=== PATIENT | female | born 1935 | race Asian ===

== ENCOUNTER 2017-08-28 11:44 | Inpatient (IN) | payer MEDICARE, MEDICAID ==
[~2017-08-28] VITALS: Ht 152.4 cm; Wt 40.8 kg
[~2017-08-28 11:44] MED LIST: ACET-868 PO; ASCO500T8 PO; CARV3.122 PO; CRAN405C PO; DEXT1DRO3 RIGHTEYE; DOCU-25 PO; HYDR-3326 PO; INSU100I5 SQ; LEVE500S PO; LEVO500T15 PO; LISI10TA5 PO; LORA-258 PO; LORA1TAB82 PO; MAGN400O6 PO; MIRT15TA3 PO; MULT1TAB11 PO; ONDA4TAB8 PO; SIMV10TA2 PO; [UNRECOGNIZED DRUG - OTHER] RIGHTEYE
--- NOTE | 2017-08-28 11:50 | NUR ---
HAILEY FROM [facility] DT RIGHT LEG OPEN WOUND POSSIBLE GANGRENE, PATIENT WAS SENT BY MD HOLBROOK. RIGHT LEG WOUND NOTED WITH GREENISH DISCHARGE. SKIN IS WARM TO TOUCH AND NON DIAPHORETIC. AFEBRILE. VSS
--- NOTE | 2017-08-28 12:00 | NUR ---
CALLED [facility], DROP MAN DR MARIJA SANTOS WAS PAGED.
--- NOTE | 2017-08-28 12:02 | NUR ---
DR PERKINS PAGED FOR DR MARTINEZ
--- NOTE | 2017-08-28 12:08 | NUR ---
DR FONTANEZ ON THE PHONE WITH DR MARTINEZ.
--- NOTE | 2017-08-28 12:21 | NUR ---
CALLED PHARMACY FOR IV ATB
[2017-08-28] MEDS ORDERED: VANCOMYCIN 1 GM in IV D5W 250 ML IV ONE (12:30)
[2017-08-28] MEDS ORDERED: GENTAMICIN 80 MG in IV D5W 50 ML IV ONE (12:30)
[2017-08-28 12:36] LABS: BASOPHILS # (AUTO) 0.1 /CMM (0.0-0.2); BASOPHILS % (AUTO) 1.6 % (0.0-2.0); EOSINOPHILS # (AUTO) 0.2 /CMM (0.0-0.7); EOSINOPHILS % (AUTO) 4.1 % (0.0-6.0); HEMATOCRIT 38 % (33-45); HEMOGLOBIN 12.5 g/dL (11.5-14.8); LYMPHOCYTES # (AUTO) 1.4 /CMM (0.8-4.8); MEAN CORPUSCULAR HEMOGLOBIN 30 PG (26.0-33.0); MEAN CORPUSCULAR HGB CONC 33 g/dl (31.0-36.0); MEAN CORPUSCULAR VOLUME 91 fL (82-100); MONOCYTES # (AUTO) 0.2 /CMM (0.1-1.30); MONOCYTES % (AUTO) 4.1 % (2.0-12.0); NEUTROPHILS # (AUTO) 3.9 /CMM (1.8-8.9); NEUTROPHILS % (AUTO) 66.2 % (43.0-81.0); PLATELET COUNT (AUTO) 297 /CMM (150-450); RDW COEFFICIENT OF VARIATION 12.4 (11.5-15.0); RED BLOOD CELL COUNT(AUTO) 4.13 MIL/uL (4.0-5.2); WHITE BLOOD COUNT (AUTO) 5.8 K/uL (4.3-11.0)
--- NOTE | 2017-08-28 12:40 | NUR ---
FOLLOWED UP WITH PHARMACY REGARDING ATB.
[2017-08-28 12:46] LABS: CALCIUM, SERUM 9.8 mg/dL (8.5-10.1); CARBON DIOXIDE 33 mmol/L (21-32); CHLORIDE 101 mmol/L (98-107); CREATININE 0.6 mg/dL (0.6-1.3); GLUCOSE 183 mg/dL (74-106); POTASSIUM 4.2 mmol/L (3.5-5.1); SODIUM SERUM 140 mmol/L (136-145); UREA NITROGEN, BLOOD 16 mg/dL (7-18)
[2017-08-28 12:49] LABS: INR 0.95 (0.87-1.13); PROTHROMBIN TIME 9.9 SECS (9.5-12.7)
[2017-08-28 12:51] LABS: ALANINE AMINOTRANSFERASE 23 U/L (12-78); ALBUMIN 3.3 g/dL (3.4-5.0); ALKALINE PHOSPHATASE 87 U/L (46-116); ASPARTATE AMINOTRANSFERASE 28 U/L (15-37); BILIRUBIN,DIRECT 0.1 mg/dL (0.0-0.2); BILIRUBIN,TOTAL 0.5 mg/dL (0.2-1.0); TOTAL PROTEIN, SERUM 7.6 g/dL (6.4-8.2)
[2017-08-28 12:53] LABS: TROPONIN I < 0.017 ng/mL (0.00-0.056)
[2017-08-28] MEDS ORDERED: INSU100I4 SQ (12:54)
[2017-08-28] MEDS ORDERED: CRAN425C PO (12:54)
--- NOTE | 2017-08-28 13:03 | NUR ---
REPORT GIVEN TO MELIZA CONTRERAS CONTINUITY OF CARE
--- NOTE | 2017-08-28 13:13 | NUR ---
PATIENT TRANSPORTED TO [facility] [place]. S
--- NOTE | 2017-08-28 13:35 | NUR ---
RN NOTE PATIENT ARRIVE TO THE UNIT ON GURNEY A/0X1-2 ITCHING AND SCRATCHING SCREAMING WITH UNIDENTIFIABLE LANGUAGE. PATIENT VITALS ASSESSED AND NO SOB NOTED , PAIN UNABLE TO BE SCALED HOWEVER THE PATIENT IS GRIMACING REAPEDALY AND YELLS WHEN LOWER LEFT EXTREMITY IS SLIGHTLY MOVED OR REPOSITIONED PATIENT IS ABLE TO MOVE HER SELF HOWEVER UNABLE TO FOLLOW COMMANDS PANT APPEAR ANIOUS AND THRUSH / WHITE COATING NOTED ON PATIENTS TONGUE PATIENT HAS MULTIPLE SKIN ISSUE : LEFT LOWER LEG WET GANGRENE [id number] TO DETERMINE DEPTH. PATIENT SCRACTHING SKIN ALL OVER AND BODY CAUSING FURTHER SKIN IRRITATION. PICTURES TAKEN AND PLACE IN THE CHART , WOUND CARE NURSE LAYA AND MICHELLE PAIGE HELPED ASSIST WITH INITIAL INTAKE. PATIENT SAFTEY MEASURES IN PLACE RN SITTING AT BEDSIDE
[2017-08-28 14:00] VITALS: BP 158/92
[2017-08-28] MEDS: LIDOCAINE 1% INJ 50 ML MDV IJ ONE (15:30)
[2017-08-28 16:00] VITALS: BP 145/84
[2017-08-28] MEDS: LORAZEPAM INJ 2 MG/ML VIAL IV PRN (16:55)
[2017-08-28] MEDS ORDERED: CEFTRIAXONE 1 G in IV D5W 50 ML IV SCH (17:00)
[2017-08-28] MEDS ORDERED: Medication Not On Formulary EA (Cranberry Extract (Cranberry) 425 MG) PO SCH (17:00)
[2017-08-28] MEDS ORDERED: ACETAMINOPHEN 325 MG TABLET PO PRN (17:00)
[2017-08-28] MEDS ORDERED: IV D5/ 0.9% NACL 1,000 ML IV ONE (17:00)
[2017-08-28] MEDS ORDERED: FEE PK DOSING 1 MIN EA MC ONE (17:19)
[2017-08-28] MEDS: POLYVINYL ALCOHOL 15 ML BOTTLE RIGHTEYE SCH (19:10)
[2017-08-28] MEDS: CARVEDILOL 3.125 MG TABLET PO SCH (19:10)
--- NOTE | 2017-08-28 19:11 | NUR ---
RN CLOSING NOTE PATIENT IN BED RA NO SOB NOTED PATIENT GIVEN PM B/P MEDICATION DAYSHIFT STILL AWAITING FURTHER MEDICATION VIA PHARMACY RN WILL ENDORSE FURTHER CARE TO PM RN , PATIENT IS RESTING AFTER DEBRIBMENT MEAL TRAY ON BEDSIDE TABLE TO GIVE TO PATIENT AFTER SHE AWAKENS
--- NOTE | 2017-08-28 19:30 | NUR ---
MS RN NOTE RECEIVED PATIENT AWAKE IN BED. VERY CONFUSED LAO SPEAKING. NO DISTRESS NOTED. IV SITE TO RIGHT HAND INTACT, WITH FLUIDS RUNNING ORDERED.DRESSING TO LEFT LEG C/D/I. BED LOCKED AND IN LOWEST POSITION. SIDE RAILS UP, CALL LIGHT WITHIN REACH. WILL CONTINUE TO MONITOR.
[2017-08-28 20:00] VITALS: BP 142/78
[2017-08-28] MEDS: LEVETIRACETAM (250 MG) 250 MG TABLET PO SCH (20:11)
[2017-08-28] MEDS: CEFTRIAXONE 1 G in IV D5W 50 ML IV SCH (20:18)
--- NOTE | 2017-08-28 20:45 | NUR ---
MS RN NOTE IV TO RHAND LEAKING. NEW IV STARTED #22 MER. PATIENT TOLERATED WELL. WILL CONTINUE TO MONITOR.
--- NOTE | 2017-08-28 21:00 | NUR ---
MS RN NOTE PATIENT HAS FACIAL GRIMACING. SON AT BEDSIDE. STATES THAT PATIENT IS HAVING 8/10 PAIN TO LEFT LEG DEBRIDEMENT SITE. NEW ORDER RECEIVED FOR DILAUDID 0.5MG Q8H FOR SEVERE PAIN RECEIVED AND CARRIED OUT. ADMINISTERED DILAUDID TO PATIENT SAFELY ORDERED. WILL CONTINUE TO MONITOR.
[2017-08-28] MEDS: HYDROMORPHONE 1 MG/1 ML DISP.SYRIN IV PRN (21:07)
[2017-08-28] MEDS: SIMVASTATIN 10 MG TABLET PO SCH (21:07)
[2017-08-28] MEDS: DOCUSATE SODIUM 100 MG CAPSULE PO SCH (21:07)
[2017-08-28] MEDS: METRONIDAZOLE 500MG/ NS 100ML 500 MG in PREMIX 1 EA IV SCH (21:07)
[2017-08-28] MEDS: INSULIN DETEMIR 100 UNIT/ML CARTRIDGE SQ SCH (21:11)
[2017-08-28 22:00] VITALS: BP 142/78
[2017-08-29 04:00] VITALS: BP 153/62
[2017-08-29] MEDS: METRONIDAZOLE 500MG/ NS 100ML 500 MG in PREMIX 1 EA IV SCH ×3 (04:08→23:03)
[2017-08-29 05:44] LABS: CALCIUM, SERUM 8.7 mg/dL (8.5-10.1); CARBON DIOXIDE 31 mmol/L (21-32); CHLORIDE 102 mmol/L (98-107); CREATININE 0.9 mg/dL (0.6-1.3); GLUCOSE 144 mg/dL (74-106); POTASSIUM 4.4 mmol/L (3.5-5.1); SODIUM SERUM 141 mmol/L (136-145); UREA NITROGEN, BLOOD 16 mg/dL (7-18)
[2017-08-29] MEDS: VANCOMYCIN 500 MG in IV D5W 100 ML IV SCH (06:30)
[2017-08-29] MEDS: INSULIN DETEMIR 100 UNIT/ML CARTRIDGE SQ SCH ×2 (06:31→18:33)
[2017-08-29 08:00] VITALS: BP 134/73
--- NOTE | 2017-08-29 08:18 | NUR ---
WOUND CARE CONSULT: PT PRESENTS WITH LEFT LOWER LEG NECROTIC WOUND WITH ODOR AND PURULENT DRAINAGE. PT FOLLOWED BY DR ZAMORA. DEFER TO DPM FOR TREATMENT PLAN OF LOWER EXTREMITIES. PT IS VERY THIN AND BONY WITH MULTIPLE AREAS OF SCARRING AND SCRATCH LEE. PT NOTED TO SCRATCH HER SKIN AT TIMES. PT ON ANNETTE ISOFLEX LOW AIRLOSS BED. ALL SKIN PROTECTION MEASURES IN PLACE AND DISCUSSED WITH NURSING STAFF. WILL SEE PRN. ARRIOLA IN AGREEMENT WITH PLAN OF CARE.
[2017-08-29] MEDS ORDERED: Z GUARD REMEDY 2 OZ OINT TP PRN (08:30)
[2017-08-29] MEDS: LEVETIRACETAM (250 MG) 250 MG TABLET PO SCH ×2 (09:15→21:20)
[2017-08-29] MEDS: MULTIVIT, IRON, MIN NO. 8, FA 1 TAB PO SCH (09:15)
[2017-08-29] MEDS: CARVEDILOL 3.125 MG TABLET PO SCH ×2 (09:16→17:04)
[2017-08-29] MEDS: LISINOPRIL (10MG) 10 MG TABLET PO SCH (09:16)
[2017-08-29] MEDS: Z GUARD REMEDY 2 OZ OINT TP SCH (09:19)
[2017-08-29] MEDS: POLYVINYL ALCOHOL 15 ML BOTTLE RIGHTEYE SCH ×3 (11:04→17:02)
[2017-08-29] MEDS: POVIDONE-IODINE OINT 28.4 GM TUBE TP SCH ×2 (11:07→17:01)
--- NOTE | 2017-08-29 12:00 | NUR ---
PT. PULLED OUT IV,LOW ALTITUDE AIR DEFENSE OFFICER NOTIFIED,YARN PACKER CALLED FOR MIDLINE INSERTION-MEANWHILE PT. NEEDS ANTIBIOTICS-SO FLOOR RN ATTEMPTED PERIPHERAL INSERTION-TO NO AVAIL.
--- NOTE | 2017-08-29 13:30 | NUR ---
FLAGYL DUE AT 1300 UNABLE TO BE GIVEN.IV OUT.
--- NOTE | 2017-08-29 13:46 | NUR ---
Patient resides at [facility] [phone], he is totally dependent with adl's and bedfast most of the time. Current plan is to dc back to SNF once discharge. Addendum: 08/29/17 at 1347 by ANDREZ HOLBROOK RN Amended: Links added.
[2017-08-29 16:00] VITALS: BP 178/70
--- NOTE | 2017-08-29 17:30 | NUR ---
ARTERIAL DOPPLER UNABLE TO BE DONE DUE TO PT,S CONTRACTED LIMBS AND BEING UNCOOPERATIVE.
--- NOTE | 2017-08-29 19:30 | NUR ---
RN NOTES, PATIENT RECEIVED IN BED SLEEPING AT THIS TIME, RA BREATHING EVEN AND UNLABORED NO S/S OF PAIN OR DISCOMFORT AT THIS TIME. AFEBRILE, AT THIS TIME, NO PIV LINE IN PLACE PER RN DAY SHIFT A NURSE IS COMING TO INSERT A MIDLINE. NOTED WITH MULTIPLE CONTRACTURES. BED LOCKED IN LOWEST POSITION, NOTED CLEAN AND DRY AT THIS TIME. DRESSING IN LEFT FOOT DRY AND CLEAN, NO BLEEDING NOTED. CALL LIGHT W/I REACH, WILL CONTINUE TO MONITOR CLOSELY.
[2017-08-29 20:00] VITALS: BP 173/58
[2017-08-29] MEDS: DOCUSATE SODIUM 100 MG CAPSULE PO SCH (21:16)
[2017-08-29] MEDS: SIMVASTATIN 10 MG TABLET PO SCH (21:16)
[2017-08-29] MEDS: HYDROMORPHONE 1 MG/1 ML DISP.SYRIN IV PRN (22:22)
[2017-08-29] MEDS: LORAZEPAM INJ 2 MG/ML VIAL IV PRN (22:24)
[2017-08-29] MEDS: CEFTRIAXONE 1 G in IV D5W 50 ML IV SCH (22:28)
[2017-08-30] MEDS: VANCOMYCIN 500 MG in IV D5W 100 ML IV SCH (01:20)
[2017-08-30 04:00] VITALS: BP 149/62
[2017-08-30] MEDS: METRONIDAZOLE 500MG/ NS 100ML 500 MG in PREMIX 1 EA IV SCH ×2 (06:17→13:06)
[2017-08-30 06:38] VITALS: BP 149/62
[2017-08-30 06:48] LABS: CALCIUM, SERUM 8.8 mg/dL (8.5-10.1); CARBON DIOXIDE 33 mmol/L (21-32); CHLORIDE 104 mmol/L (98-107); CREATININE 0.7 mg/dL (0.6-1.3); POTASSIUM 3.4 mmol/L (3.5-5.1); SODIUM SERUM 144 mmol/L (136-145); UREA NITROGEN, BLOOD 15 mg/dL (7-18)
[2017-08-30 06:53] LABS: GLUCOSE 47 mg/dL (74-106)
[2017-08-30] MEDS ORDERED: DEXTROSE 50%-WATER 50 ML DISP.SYRIN ONE (07:22)
[2017-08-30] MEDS: INSULIN DETEMIR 100 UNIT/ML CARTRIDGE SQ SCH ×2 (07:30→18:00)
--- NOTE | 2017-08-30 07:36 | NUR ---
RN NOTES PT REMAINED IN STABLE CONDITION THROUGHOUT THE SHIFT AFTER PRN MEDICINE GIVEN ORDERED. PT ASLEEP WELL BREATHING EVEN AND UNLABORED. NO FACIAL COMPLAIN OF PAIN AT 0655 KRISTINE FROM LAB CALLED AND REPORT REGARDING THE CRITICAL VALUE OF GLUCOSE 47 MG/DL. MANUAL ACCUCHECK DONE BS 52 MG/DL. OFFERED JUICE AND SNACK BU PT REFUSED TO EAT. RESPONSIVE SCREAMING, AND YELLING WHEN TRYING TO GIVE FOOD OR JUICE. PAGED MD AND WAITED TO CALL BACK. REPORT TO CHARGE NURSE AND D50 GIVEN PROTOCOL. ENDORSED TO AM NURSE TO FOLLOW UP MD AND TO RECHECK BS.
[2017-08-30 08:00] VITALS: BP 163/71
--- NOTE | 2017-08-30 08:13 | NUR ---
RN NOTE; HELD LEVEMIR INSULIN LEVEMIR 12 UNIT HELD DUE TO EPISODE OF HYPOGLYCEMIA BS- 52 MG/DL IN AM , DEXTROSE 50% IV GIVEN BY PREVIOUS SHIFT RN , RECHECKED BS - 261 MG/DL . WILL CONTINUE TO MONITOR .
[2017-08-30] MEDS: MULTIVIT, IRON, MIN NO. 8, FA 1 TAB PO SCH (09:55)
[2017-08-30] MEDS: LISINOPRIL (10MG) 10 MG TABLET PO SCH (09:55)
[2017-08-30] MEDS: LEVETIRACETAM (250 MG) 250 MG TABLET PO SCH ×2 (09:55→20:12)
[2017-08-30] MEDS: CARVEDILOL 3.125 MG TABLET PO SCH ×2 (09:56→16:20)
[2017-08-30] MEDS: Z GUARD REMEDY 2 OZ OINT TP SCH (09:57)
[2017-08-30] MEDS: POLYVINYL ALCOHOL 15 ML BOTTLE RIGHTEYE SCH ×3 (09:57→16:21)
[2017-08-30] MEDS: POVIDONE-IODINE OINT 28.4 GM TUBE TP SCH ×2 (10:00→16:28)
[2017-08-30 12:00] VITALS: BP 156/52
[2017-08-30] MEDS: POTASSIUM CL. PREMIX PERIPHER. 50 ML IV SCH ×2 (13:46→15:10)
--- NOTE | 2017-08-30 15:12 | NUR ---
RN NOTE; RECEIVED RESTRAINTS ORDER FROM DR FONTANEZ FOR B/L MITTENS DUE TO PATIENT SCRATCHING AND PULLING OUT LINES NECESSARY FOR TREATMENT , WILL CHECK FOR CIRCULATION .
[2017-08-30 16:00] VITALS: BP 164/80
[2017-08-30] MEDS: LORAZEPAM INJ 2 MG/ML VIAL IV PRN (16:20)
[2017-08-30] MEDS ORDERED: LEVOFLOXACIN (500MG) 500 MG TABLET PO ONE (17:00)
[2017-08-30] MEDS: ACIDOPHILUS/BULGARICUS 1 EACH TAB.CHEW PO SCH (18:21)
[2017-08-30] MEDS: AMPICILLIN SODIUM 1 GM in IV NS 0.9% 100 ML IV SCH (18:22)
--- NOTE | 2017-08-30 19:55 | NUR ---
RN EOS NOTE; PT REMAINED STABLE DURING THE SHIFT. NO ANY DISTRESS NOTED, ALL DUE MEDS TOLERATED WELL. ENDORSE TO NEXT SHIFT RN FOR CONTINUITY OF CARE.
[2017-08-30] MEDS: HYDROMORPHONE 1 MG/1 ML DISP.SYRIN IV PRN (20:12)
--- NOTE | 2017-08-30 20:20 | NUR ---
RN NOTES PATIENT ON BED. BREATHING EVEN AND UNLABORED. AOX1 TO NAME, CONFUSED MOST OF THE TIME. WITH IV SITE ON RFA G22 AND MER MIDLINE INTACT AND PATENT AND FLUSHED WELL.LEFT LEG ULCER SOAKED WITH WOUND DRAINAGE AND SUNK FROM THE WOUND CHANGED ORDERED TX. PT IS RESTLESS ON BED, SCREAMED AND YELLED WHILE TAKING VS. SBP SHOWS 180'S AT 1940 PM. AND TEM 99.3 DEG [facility] PAIN MEDICINE GIVEN ORDERED DUE TO LEFT LOWER LEG GANGRENE. AND PT STARTED TO CALM DOWN. BP RECHECK AFTER 15 MINUTES EFFECTIVE SBP NOW IS 107. PT ASLEEP AT THIS TIME WITH ADEQ. OXYGENATION. OFFLOADED EXT WITH PILLOWS. BILATERAL MITTENS CONTINUE TO RENDERED DUE TO EPISODE OF PULLING OUT WHEN AWAKE. KEP CLEAN AND DRY WILL CONTINUE TO MONITOR.
[2017-08-30] MEDS: DOCUSATE SODIUM 100 MG CAPSULE PO SCH (21:32)
[2017-08-30] MEDS: SIMVASTATIN 10 MG TABLET PO SCH (21:32)
[2017-08-31] MEDS: AMPICILLIN SODIUM 1 GM in IV NS 0.9% 100 ML IV SCH ×3 (03:53→18:44)
[2017-08-31 04:00] VITALS: BP 159/64
--- NOTE | 2017-08-31 06:52 | NUR ---
RN NOTES PATIENT ASLEEP WELL ON BED. BREATHING EVEN AND UNLABORED. NO SIGNIFICANT CHANGES SHOWS. WOUND DRESSING CHANGE ORDERED TX. AFEBRILE. VS CONTROLLED WITH MEDS. STILL WITH POOR APPETITE OFFERED FOOD INEFFECTIVE. TURNED AND REPOSITIONED Q2H AND PRN PT COMFORTABLE. BILATERAL MITTENS IN PLACED. BED LOCKED AND PLACED IN LOWEST POSSIBLE POSITION. KEPT CLEAN AND DRY. WILL ENDORSED CONTINUITY OF CARE TO AM NURSE. AND TO FOLLOW UP MD REGARDING THE DISCHARGE OF PATIENT PER SON
[2017-08-31] MEDS: INSULIN DETEMIR 100 UNIT/ML CARTRIDGE SQ SCH ×2 (07:30→18:47)
[2017-08-31 07:53] LABS: CALCIUM, SERUM 8.9 mg/dL (8.5-10.1); CARBON DIOXIDE 29 mmol/L (21-32); CHLORIDE 103 mmol/L (98-107); CREATININE 0.8 mg/dL (0.6-1.3); GLUCOSE 137 mg/dL (74-106); POTASSIUM 3.9 mmol/L (3.5-5.1); SODIUM SERUM 143 mmol/L (136-145); UREA NITROGEN, BLOOD 14 mg/dL (7-18)
[2017-08-31 08:00] VITALS: BP 131/61
--- NOTE | 2017-08-31 08:00 | NUR ---
NURY MS RN AM NOTES, PATIENT RECEIVED IN BED AWAKE AND RESTLESS IN BED.RA BREATHING EVEN AND UNLABORED NO S/S OF PAIN OR DISCOMFORT AT THIS TIME. AFEBRILE, AT THIS TIME, NOTED WITH MULTIPLE CONTRACTURES. BED LOCKED IN LOWEST POSITION, NOTED CLEAN AND DRY AT THIS TIME. DRESSING IN LEFT FOOT DRY AND CLEAN, NO BLEEDING NOTED. CALL LIGHT W/IN REACH, WILL CONTINUE TO MONITOR CLOSELY.
[2017-08-31] MEDS ORDERED: LEVO250T2 PO (08:29)
[2017-08-31] MEDS ORDERED: POVI28.4 TP (08:29)
[2017-08-31] MEDS ORDERED: ALLA266C2 TP ×2 (08:29)
[2017-08-31] MEDS ORDERED: ACID1TAB12 PO (08:29)
[2017-08-31] MEDS ORDERED: AMPI500C11 PO (08:32)
--- NOTE | 2017-08-31 10:18 | NUR ---
MIRANDA HELD-PT REFUSED BREAKFAST
[2017-08-31] MEDS: MULTIVIT, IRON, MIN NO. 8, FA 1 TAB PO SCH (10:30)
[2017-08-31] MEDS: LEVETIRACETAM (250 MG) 250 MG TABLET PO SCH ×2 (10:30→21:32)
[2017-08-31] MEDS: LISINOPRIL (10MG) 10 MG TABLET PO SCH (10:31)
[2017-08-31] MEDS: CARVEDILOL 3.125 MG TABLET PO SCH ×2 (10:31→18:45)
[2017-08-31] MEDS: ACIDOPHILUS/BULGARICUS 1 EACH TAB.CHEW PO SCH ×3 (10:31→18:45)
[2017-08-31] MEDS: POVIDONE-IODINE OINT 28.4 GM TUBE TP SCH ×2 (10:32→18:46)
[2017-08-31] MEDS: Z GUARD REMEDY 2 OZ OINT TP SCH (10:33)
[2017-08-31] MEDS: POLYVINYL ALCOHOL 15 ML BOTTLE RIGHTEYE SCH ×3 (10:33→18:46)
--- NOTE | 2017-08-31 18:00 | NUR ---
PT RESTING IN BED WITH NO S/S OF PAIN OR DISTRESS.RESTLESS EPISODE OCCASIONALLY.WITH BILATERAL MITTENS ON AND CHECKED FOR CIRCULATION EVERY TWO HRS.
[2017-08-31] MEDS: LEVOFLOXACIN (250MG) 250 MG TABLET PO SCH (18:45)
--- NOTE | 2017-08-31 19:30 | NUR ---
RN/MS NOTES: RECEIVED PATIENT AWAKE IN BED. VERY CONFUSED WOLOF SPEAKING JUST MUMBLES. NO FACIAL MACK OR MOANING NOTED. NOT IN ANY RESPIRATORY DISTRESS NOTED. IV SITE TO RIGHT FA INTACT AND PATENT W/ NO S/S OF INFECTION/INFILTRATION NOTED. HAS MER MID LINE INTACT. DRESSING TO LEFT LEG C/D/I. BED LOCKED AND IN LOWEST POSITION. SIDE RAILS UP, CALL LIGHT WITHIN REACH. HAS BILATERAL MITTENS INPLACE. WILL CONTINUE TO MONITOR.
[2017-08-31] MEDS: HYDROMORPHONE 1 MG/1 ML DISP.SYRIN IV PRN (19:50)
[2017-08-31 20:00] VITALS: BP 147/76
[2017-08-31] MEDS: SIMVASTATIN 10 MG TABLET PO SCH (21:32)
[2017-08-31] MEDS: DOCUSATE SODIUM 100 MG CAPSULE PO SCH (21:32)
[2017-09-01] MEDS: AMPICILLIN SODIUM 1 GM in IV NS 0.9% 100 ML IV SCH ×3 (01:10→17:23)
[2017-09-01 04:00] VITALS: BP 125/53
[2017-09-01 06:58] LABS: CARBON DIOXIDE 32 mmol/L (21-32); CHLORIDE 103 mmol/L (98-107); CREATININE 0.8 mg/dL (0.6-1.3); GLUCOSE 162 mg/dL (74-106); POTASSIUM 3.7 mmol/L (3.5-5.1); SODIUM SERUM 142 mmol/L (136-145); UREA NITROGEN, BLOOD 20 mg/dL (7-18)
--- NOTE | 2017-09-01 07:10 | NUR ---
RN OPEN NOTES RECEIVED REPORT FROM FOOD SERVICE DIRECTOR NURSE. WILL CONTINUE TO MONITOR AND ASSESS PATIEN THROUGH OUT MY SHIFT
--- NOTE | 2017-09-01 07:15 | NUR ---
RN/MS NOTES: PT. IN BED SLEEPING W/ RESPIRATIONS EVEN AND UNLABORED. NO FACIAL GRIMACES OR MOANING NOTED. REPORT GIVEN TO NEXT SHIFT NURSE FOR CONTINUE OF CARE.
[2017-09-01] MEDS: INSULIN DETEMIR 100 UNIT/ML CARTRIDGE SQ SCH ×2 (07:30→17:43)
[2017-09-01 08:00] VITALS: BP 127/56
[2017-09-01] MEDS: Z GUARD REMEDY 2 OZ OINT TP SCH (09:51)
[2017-09-01] MEDS: POVIDONE-IODINE OINT 28.4 GM TUBE TP SCH ×2 (09:51→17:25)
[2017-09-01] MEDS: POLYVINYL ALCOHOL 15 ML BOTTLE RIGHTEYE SCH ×3 (09:52→17:25)
[2017-09-01] MEDS: ACIDOPHILUS/BULGARICUS 1 EACH TAB.CHEW PO SCH ×3 (09:58→17:25)
[2017-09-01] MEDS: LEVETIRACETAM (250 MG) 250 MG TABLET PO SCH ×2 (09:58→21:09)
[2017-09-01] MEDS: MULTIVIT, IRON, MIN NO. 8, FA 1 TAB PO SCH (09:58)
[2017-09-01] MEDS: LISINOPRIL (10MG) 10 MG TABLET PO SCH (09:59)
[2017-09-01] MEDS: CARVEDILOL 3.125 MG TABLET PO SCH ×2 (09:59→17:26)
[2017-09-01 16:00] VITALS: BP 148/80
[2017-09-01] MEDS: LEVOFLOXACIN (250MG) 250 MG TABLET PO SCH (17:25)
--- NOTE | 2017-09-01 19:30 | NUR ---
RN/MS NOTES: RECEIVED PATIENT AWAKE IN BED. VERY CONFUSED TAMAZIGHT SPEAKING JUST MUMBLES. NO FACIAL MACK OR MOANING NOTED. NOT IN ANY RESPIRATORY DISTRESS NOTED. IV SITE TO RIGHT FA INTACT AND PATENT W/ NO S/S OF INFECTION/INFILTRATION NOTED. HAS MER MID LINE INTACT. DRESSING TO LEFT LEG C/D/I. BED LOCKED AND IN LOWEST POSITION. SIDE RAILS UP, CALL LIGHT WITHIN REACH. HAS BILATERAL MITTENS INPLACE. WILL CONTINUE TO MONITOR.
--- NOTE | 2017-09-01 19:33 | NUR ---
RN CLOSING NOTES PATIENT IS IN BED. ALERT AND ORIENTED TO SELF ONLY. NO SIGNS AND SYMPTOMS OF DISTRESS OR PAIN. IV SITE IS INTACT AND PATENT. AL NURSING CARE ATTENDED. PATIENT KEPT CLEAN AND DRY. ENDORSED TO SOUBRETTE NURSE.
[2017-09-01 20:00] VITALS: BP 163/41
[2017-09-01] MEDS: DOCUSATE SODIUM 100 MG CAPSULE PO SCH (21:09)
[2017-09-01] MEDS: SIMVASTATIN 10 MG TABLET PO SCH (21:09)
[2017-09-02] MEDS: AMPICILLIN SODIUM 1 GM in IV NS 0.9% 100 ML IV SCH ×2 (01:00→08:40)
[2017-09-02 04:00] VITALS: BP 141/52
[2017-09-02 06:33] LABS: CALCIUM, SERUM 8.6 mg/dL (8.5-10.1); CARBON DIOXIDE 34 mmol/L (21-32); CHLORIDE 103 mmol/L (98-107); CREATININE 0.6 mg/dL (0.6-1.3); GLUCOSE 62 mg/dL (74-106); POTASSIUM 3.3 mmol/L (3.5-5.1); SODIUM SERUM 145 mmol/L (136-145); UREA NITROGEN, BLOOD 13 mg/dL (7-18)
--- NOTE | 2017-09-02 06:54 | NUR ---
RN/MS NOTES: PT. IN BED RESTING. ALERT TO SELF. NO S/S OF FACIAL GRIMACE OR MOANING NOTED. CALL LIGHT W/ REACH. REPOSITIONED PER PROTOCOL. REPORT GIVEN TO NEXT SHIFT NURSE FOR VAMSHI.
--- NOTE | 2017-09-02 07:10 | NUR ---
RN INITIAL NOTE PATIENT RECEIVED IN BED, RESTING. AWAKE, ALERT, DISORIENTED. PRIMARILY GEORGIAN SPEAKING. NO S/S OF PAIN OR DISCOMFORT. RESPIRATIONS ARE EVEN AND UNLABORED. SATING WELL ON ROOM AIR. NO S/S OF RESPIRATORY DISTRESS OR SOB. IV SITE FLUSHED, PATENT. SKIN IS WARM AND DRY TO TOUCH. SAFETY PRECAUTIONS IMPLEMENTED. BED IN LOCKED, LOW POSITION WITH TWO SIDE RAILS UP. CALL LIGHT AND BELONGINGS WITHIN EASY REACH. WILL CONTINUE TO MONITOR.
[2017-09-02] MEDS: INSULIN DETEMIR 100 UNIT/ML CARTRIDGE SQ SCH (07:30)
[2017-09-02 08:00] VITALS: BP 162/57
[2017-09-02] MEDS ORDERED: BOOST PLUS FOOD-VANILLA 237 ML BOX PO SCH (08:00)
[2017-09-02] MEDS: LEVETIRACETAM (250 MG) 250 MG TABLET PO SCH (08:39)
[2017-09-02] MEDS: ACIDOPHILUS/BULGARICUS 1 EACH TAB.CHEW PO SCH ×2 (08:39→12:20)
[2017-09-02] MEDS: LISINOPRIL (10MG) 10 MG TABLET PO SCH (08:39)
[2017-09-02] MEDS: MULTIVIT, IRON, MIN NO. 8, FA 1 TAB PO SCH (08:39)
[2017-09-02] MEDS: POVIDONE-IODINE OINT 28.4 GM TUBE TP SCH (08:40)
[2017-09-02] MEDS: POLYVINYL ALCOHOL 15 ML BOTTLE RIGHTEYE SCH ×2 (08:40→12:20)
[2017-09-02] MEDS: Z GUARD REMEDY 2 OZ OINT TP SCH (08:40)
[2017-09-02] MEDS: CARVEDILOL 3.125 MG TABLET PO SCH (08:40)
[2017-09-02] MEDS: Potassium Chloride 10 MEQ in IV D5W 50 ML IV SCH ×2 (14:10→15:35)
--- NOTE | 2017-09-02 15:30 | NUR ---
RN CLOSING NOTE PATIENT DISCHARGED. LEFT VIA AMBULANCE. REPORT CALLED TO POWER AT [facility].
[2017-09-02 16:00] VITALS: BP 162/57
[2017-09-02] MEDS: LORAZEPAM INJ 2 MG/ML VIAL IV PRN (16:15)
== END 2017-09-02 17:30 | DRG 264 ==
LOC: ER 11:46 → MEDSG1 12:37
PROVIDERS: ADMIT Internal Medicine Nephrology; ATTEND Internal Medicine Nephrology
PROC: 0JBP0ZZ Excision of Left Lower Leg Subcutaneous Tissue and Fascia, Open Approach (ICD-10-PCS; principal; 2017-08-28)
PROC: 05H633Z Insertion of Infusion Device into Left Subclavian Vein, Percutaneous Approach (ICD-10-PCS; 2017-08-28)
DX: E11.52 Type 2 diabetes mellitus with diabetic peripheral angiopathy with gangrene (principal); E43 Unspecified severe protein-calorie malnutrition; G92 Toxic encephalopathy; R53.2 Functional quadriplegia; F03.90 Unspecified dementia, unspecified severity, without behavioral disturbance, psychotic disturbance, mood disturbance, and anxiety; D64.9 Anemia, unspecified; G40.909 Epilepsy, unspecified, not intractable, without status epilepticus; F39 Unspecified mood [affective] disorder; Z86.73 Personal history of transient ischemic attack (TIA), and cerebral infarction without residual deficits; H26.9 Unspecified cataract; M81.0 Age-related osteoporosis without current pathological fracture; Z79.4 Long term (current) use of insulin; I10 Essential (primary) hypertension; Z88.8 Allergy status to other drugs, medicaments and biological substances; Z51.5 Encounter for palliative care; F29 Unspecified psychosis not due to a substance or known physiological condition; M24.569 Contracture, unspecified knee; I25.10 Atherosclerotic heart disease of native coronary artery without angina pectoris; Z79.899 Other long term (current) drug therapy
CPT/HCPCS: 36415; 71010-TC; 80048-TC; 80076-TC; 82962-TC; 83605-TC; 84484-TC; 85025-TC; 85730-TC; 87040-TC; 87070-TC; 87081-TC; 87186-TC; A4216; A4606; A6253; A6402; A6403; J0290; J0696; J1170; J1580; J1815; J2060; J3370; J3480; J3490; J7030; J7042; J7050; J7060; Z7610

== ENCOUNTER 2017-11-23 13:03 | Outpatient (CLI) | payer MEDICARE, MEDICAID ==
[~2017-11-23 13:03] MED LIST changes: +ACID1TAB12 PO; +ALLA266C2 TP; +AMPI500C11 PO; -ASCO500T8 PO; -CRAN405C PO; +CRAN425C6 PO; +DOCU-141 PO; -DOCU-25 PO; -HYDR-3326 PO; +INSU100I4 SQ; -LEVE500S PO; +LEVE500S9 PO; +LEVO250T2 PO; -LEVO500T15 PO; -LORA-258 PO; -LORA1TAB82 PO; -MAGN400O6 PO; -MIRT15TA3 PO; -ONDA4TAB8 PO; +POVI28.4 TP; -[UNRECOGNIZED DRUG - OTHER] RIGHTEYE
[2017-11-23] MEDS ORDERED: NUTR1PAC14 PO (16:20)
[2017-11-23] MEDS ORDERED: AMIN30LI4 PO (16:20)
[2017-11-23] MEDS ORDERED: POLY15DR40 EACHEYE (16:38)
[2017-11-23] MEDS ORDERED: BLOO-668 IN (16:38)
[2017-11-23] MEDS ORDERED: LEVE250T2 PO (16:38)
[2017-11-23] MEDS ORDERED: ASCO500T9 PO (16:38)
[2017-11-23] MEDS ORDERED: ACET-868 PO (16:38)
[2017-11-23] MEDS ORDERED: ACID1TAB12 PO (16:38)
== END 2017-11-23 23:59 | disposition other institution (70) ==
LOC: WOU 13:03
PROVIDERS: ATTEND Podiatrist Foot & Ankle Surgery
DX: E11.52 Type 2 diabetes mellitus with diabetic peripheral angiopathy with gangrene (principal); E11.622 Type 2 diabetes mellitus with other skin ulcer; I96 Gangrene, not elsewhere classified; L97.225 Non-pressure chronic ulcer of left calf with muscle involvement without evidence of necrosis; M24.562 Contracture, left knee; Z79.4 Long term (current) use of insulin; G40.909 Epilepsy, unspecified, not intractable, without status epilepticus; F03.90 Unspecified dementia, unspecified severity, without behavioral disturbance, psychotic disturbance, mood disturbance, and anxiety; Z79.899 Other long term (current) drug therapy
CPT/HCPCS: 11043; A6402

== ENCOUNTER 2017-11-23 14:01 | Inpatient (IN) | payer MEDICARE, MEDICAID ==
[~2017-11-23] VITALS: Ht 149.9 cm; Wt 38.1 kg
[2017-11-23] MEDS ORDERED: AMIN30LI4 PO (16:20)
[2017-11-23] MEDS ORDERED: NUTR1PAC14 PO (16:20)
[2017-11-23] MEDS ORDERED: BLOO-668 IN (16:38)
[2017-11-23] MEDS ORDERED: ACID1TAB12 PO (16:38)
[2017-11-23] MEDS ORDERED: LEVE250T2 PO (16:38)
[2017-11-23] MEDS ORDERED: ASCO500T9 PO (16:38)
[2017-11-23] MEDS ORDERED: POLY15DR40 EACHEYE (16:38)
[2017-11-23] MEDS ORDERED: ACET-868 PO (16:38)
--- NOTE | 2017-11-23 19:23 | NUR ---
M/S RN - Notes Received from APC awake, alert to self, Persian speaking, not in any form of distress, no s/s of pain, admitted for LLE ulcer/gangrene under the care of Dr. Ken Mireles. Skin assessment done and documented. Wound and dietary triggered for consult. Patient came in with no belongings. All admission orders noted and carried out. Patient endorsed to night RN for continuity of care.
--- NOTE | 2017-11-23 19:30 | NUR ---
MS RN NOTES RECEIVED ON BED,A/O X1,CONFUSED,CONTRACTED FROM [facility],LLE GANGRENE WITH DRESSING INTACT AND OLD DISCHARGES NOTED.SALINE LOCK PLACE ON RIGHT HAND #22.REPOSITION PER PROTOCOL.WILL CONTINUE TO MONITOR STATUS.
[2017-11-23 20:00] VITALS: BP 143/86
[2017-11-23] MEDS ORDERED: FEE PK DOSING 1 MIN EA MC ONE (20:20)
[2017-11-23] MEDS ORDERED: VANCOMYCIN 1 GM in IV D5W 250ml IV ONE (21:00)
[2017-11-23] MEDS: PIPERACILLIN /TAZOBACTAM 2.25 G in IV NS 0.9% 50 ML IV SCH (21:10)
--- NOTE | 2017-11-23 21:10 | NUR ---
MS RN NOTES STARTED ON ZOSYN 2.25MG IVPB INFUSING VIA IV PUMP
--- NOTE | 2017-11-23 21:50 | NUR ---
MS RN NOTES STARTED ON VANCOMYCIN 1GM IVPB
[2017-11-24] MEDS: PIPERACILLIN /TAZOBACTAM 2.25 G in IV NS 0.9% 50 ML IV SCH ×3 (05:02→17:24)
--- NOTE | 2017-11-24 06:43 | NUR ---
MS RN NOTES IN BED CALM,BUT SCREAM AT TIMES WITH REPOSITIONING AND WOUND CARE.SALINE LOCK REMAINS INTACT AND PATENT.DRESSING CHANGED DONE LEFT LEG.AFEBRILE.WILL ENDORSE TO DAY NURSE FOR VAMSHI.
[2017-11-24 06:57] LABS: BASOPHILS % (AUTO) 0.5 % (0.0-2.0); EOSINOPHILS # (AUTO) 0.2 /CMM (0.0-0.7); EOSINOPHILS % (AUTO) 4.9 % (0.0-6.0); HEMATOCRIT 33 % (33-45); HEMOGLOBIN 11.3 g/dL (11.5-14.8); LYMPHOCYTES # (AUTO) 1.3 /CMM (0.8-4.8); LYMPHOCYTES % (AUTO) 27.6 % (20.0-44.0); MEAN CORPUSCULAR HEMOGLOBIN 31 PG (26.0-33.0); MEAN CORPUSCULAR HGB CONC 34 g/dl (31.0-36.0); MEAN CORPUSCULAR VOLUME 91 fL (82-100); MONOCYTES # (AUTO) 0.4 /CMM (0.1-1.30); MONOCYTES % (AUTO) 8.2 % (2.0-12.0); NEUTROPHILS # (AUTO) 2.7 /CMM (1.8-8.9); NEUTROPHILS % (AUTO) 58.8 % (43.0-81.0); PLATELET COUNT (AUTO) 363 /CMM (150-450); RDW COEFFICIENT OF VARIATION 13.2 (11.5-15.0); RED BLOOD CELL COUNT(AUTO) 3.68 MIL/uL (4.0-5.2); WHITE BLOOD COUNT (AUTO) 4.6 K/uL (4.3-11.0)
[2017-11-24 07:08] LABS: CARBON DIOXIDE 31 mmol/L (21-32); CHLORIDE 101 mmol/L (98-107); CREATININE 0.6 mg/dL (0.6-1.3); GLUCOSE 151 mg/dL (74-106); POTASSIUM 4.1 mmol/L (3.5-5.1); SODIUM SERUM 141 mmol/L (136-145); UREA NITROGEN, BLOOD 9 mg/dL (7-18)
[2017-11-24 08:00] VITALS: BP 108/56
[2017-11-24] MEDS: LISINOPRIL (10MG) 10 MG TABLET PO SCH (09:00)
[2017-11-24] MEDS ORDERED: POLYVINYL ALCOHOL 15 ML BOTTLE EACHEYE PRN (09:00)
[2017-11-24] MEDS ORDERED: Z GUARD REMEDY 2 OZ OINT TP PRN (09:00)
[2017-11-24] MEDS ORDERED: POVIDONE-IODINE OINT 28.4 GM TUBE TP SCH (09:00)
[2017-11-24] MEDS ORDERED: ACETAMINOPHEN 325 MG TABLET PO PRN (09:00)
[2017-11-24] MEDS ORDERED: INSULIN ASPART/LISPRO 100 UNIT/ML CARTRIDGE SQ PRN (09:00)
[2017-11-24] MEDS ORDERED: AMPICILLIN TRIHYDRATE 250 MG CAPSULE PO SCH (09:00)
--- NOTE | 2017-11-24 09:00 | NUR ---
M/S RN - Notes Patient alert to self, no s/s of pain, afebrile, no apparent distress noted. Seen by Dr. Kim (DPM) for LLE gangrene/ulcer. Photo taken on LLE ulcer for reference. Wound treatment done as ordered. Patient turned and repositioned q2h and PRN. All needs attended and met. Fall and aspiration precautions maintained. Will continue to monitor closely.
[2017-11-24] MEDS ORDERED: DEXTROSE 50%-WATER 50 ML DISP.SYRIN IV PRN (09:30)
[2017-11-24] MEDS: LEVETIRACETAM (250 MG) 250 MG TABLET PO SCH ×2 (09:54→17:20)
[2017-11-24] MEDS: ACETAMINOPHEN 325 MG TABLET PO SCH (09:54)
[2017-11-24] MEDS: MULTIVIT, IRON, MIN NO. 8, FA 1 TAB PO SCH (09:54)
[2017-11-24] MEDS: ACIDOPHILUS/BULGARICUS 1 EACH TAB.CHEW PO SCH ×3 (09:54→17:20)
[2017-11-24] MEDS: ASCORBIC ACID 500 MG TABLET PO SCH (09:54)
[2017-11-24] MEDS: CARVEDILOL 3.125 MG TABLET PO SCH ×2 (09:55→17:20)
[2017-11-24] MEDS: DAKINS HALF STRENGTH (0.25%) 480 ML BOTTLE TOP SCH (09:56)
[2017-11-24] MEDS: PROSOURCE / PROSTAT (PYXIS) 30 ML UDC PO SCH ×3 (09:56→17:19)
[2017-11-24] MEDS: Z GUARD REMEDY 2 OZ OINT TP SCH (09:57)
[2017-11-24] MEDS ORDERED: FEE PK DOSING 1 MIN EA MC ONE (11:37)
[2017-11-24] MEDS ORDERED: BLOOD SUGAR DIAGNOSTIC 1 EACH STRIP IN SCH (12:00)
[2017-11-24] MEDS: BLOOD SUGAR DIAGNOSTIC 1 EACH STRIP IN SCH ×3 (12:10→22:29)
[2017-11-24] MEDS: INSULIN ASPART/LISPRO 100 UNIT/ML CARTRIDGE SQ PRN ×2 (12:39→17:26)
[2017-11-24 16:00] VITALS: BP 135/71
--- NOTE | 2017-11-24 19:35 | NUR ---
M/S RN - Notes No significant change in condition seen. Endorsed to the licensed surveyor accordingly.
[2017-11-24 20:00] VITALS: BP 141/60
[2017-11-24] MEDS: INSULIN GLARGINE, 100 UNIT/ML CARTRIDGE SQ SCH ×2 (22:00)
[2017-11-24] MEDS ORDERED: VANCOMYCIN 1 GM in IV D5W 250 ML IV SCH (22:00)
[2017-11-24] MEDS: SIMVASTATIN 10 MG TABLET PO SCH ×2 (22:00→22:26)
[2017-11-24] MEDS: DOCUSATE SODIUM 100 MG CAPSULE PO SCH ×2 (22:00→22:26)
[2017-11-24] MEDS: VANCOMYCIN 0.75 GM in IV D5W 250 ML IV SCH (22:13)
--- NOTE | 2017-11-24 22:30 | NUR ---
MS2/RN LANTUS 10 UNITS NOT GIVEN, MED IS POSSIBLE DUPLICATE ORDER. WILL CLARIFY WITH MD IN A.M.
--- NOTE | 2017-11-24 22:54 | NUR ---
MS2/RN LANTUS 12 UNITS NOT GIVEN, BLOOD SUGAR IS 120 AND PATIENT DOES NOT WANT TO EAT SNACK. WILL MONITOR.
[2017-11-25] MEDS: PIPERACILLIN /TAZOBACTAM 2.25 G in IV NS 0.9% 50 ML IV SCH ×5 (00:18→23:19)
--- NOTE | 2017-11-25 00:23 | NUR ---
MS/2/RN PATIENT IS SLEEPING AT THIS TIME, EASILY AROUSABLE, APPEAR COMFORTABLE, NO DISTRESS NOTED, CALL LIGHT IN REACH. WILL CONTINUE TO MONITOR.
--- NOTE | 2017-11-25 06:14 | NUR ---
MS2/RN PATIENT IS AWAKE, COMFORTABLE, NO DISTRESS NOTED. ALL NEEDS ATTENDED AT THIS TIME. WILL CONTINUE TO MONITOR.
[2017-11-25 06:50] LABS: CALCIUM, SERUM 8.8 mg/dL (8.5-10.1); CARBON DIOXIDE 29 mmol/L (21-32); CHLORIDE 104 mmol/L (98-107); CREATININE 0.9 mg/dL (0.6-1.3); GLUCOSE 143 mg/dL (74-106); SODIUM SERUM 143 mmol/L (136-145); UREA NITROGEN, BLOOD 12 mg/dL (7-18)
--- NOTE | 2017-11-25 07:20 | NUR ---
MS2/RN ACCU CHECK DONE, BLOOD SUGAR 147, DID NOT COVER THE PATIENT MIGHT NOT EAT BREAKFAST PER DAY SHIFT RN, ANDREINA. PER ANDREINA SHE WILL MONITOR AND RECHECK BLOOD SUGAR.
[2017-11-25] MEDS: INSULIN GLARGINE, 100 UNIT/ML CARTRIDGE SQ SCH ×2 (07:30→21:12)
--- NOTE | 2017-11-25 07:48 | NUR ---
RN MS NOTES PT IN BED, ASLEEP, RESPIRATIONS REGULAR AND NOT LABORED, EASY TO AROUSE, NO FACIAL GRIMACING OR MOANING, REPOSITIONED FOR COMFORT, KEPT WARM AND COMFORTABLE IN BED.
[2017-11-25 08:00] VITALS: BP 141/58
[2017-11-25] MEDS: BLOOD SUGAR DIAGNOSTIC 1 EACH STRIP IN SCH ×4 (08:21→21:10)
[2017-11-25] MEDS: ACIDOPHILUS/BULGARICUS 1 EACH TAB.CHEW PO SCH ×3 (08:21→16:33)
[2017-11-25] MEDS: LISINOPRIL (10MG) 10 MG TABLET PO SCH (08:22)
[2017-11-25] MEDS: ASCORBIC ACID 500 MG TABLET PO SCH (08:22)
[2017-11-25] MEDS: CARVEDILOL 3.125 MG TABLET PO SCH ×2 (08:22→16:34)
[2017-11-25] MEDS: ACETAMINOPHEN 325 MG TABLET PO SCH (08:22)
[2017-11-25] MEDS: MULTIVIT, IRON, MIN NO. 8, FA 1 TAB PO SCH (08:22)
[2017-11-25] MEDS: LEVETIRACETAM (250 MG) 250 MG TABLET PO SCH ×2 (08:22→16:33)
[2017-11-25] MEDS: DAKINS HALF STRENGTH (0.25%) 480 ML BOTTLE TOP SCH (08:23)
[2017-11-25] MEDS: PROSOURCE / PROSTAT (PYXIS) 30 ML UDC PO SCH ×3 (08:25→16:34)
--- NOTE | 2017-11-25 08:26 | NUR ---
RN MS NOTES LANTUS NOT ADMINISTERED, PT WITH POOR PO INTAKE
[2017-11-25] MEDS: Z GUARD REMEDY 2 OZ OINT TP SCH (11:28)
--- NOTE | 2017-11-25 11:44 | NUR ---
RN MS NOTES PT IN BED, AWAKE, NO FACIAL GRIMACING OR MOANING, NOT IN DISTRESS, KEPT CLEAN AND DRY, TURNED AND REPOSITIONED, BLOOD SUGAR CHECKED, NO S/S OF HYPO/HYPERGLYCEMIA NOTED.
[2017-11-25 16:00] VITALS: BP 145/57
--- NOTE | 2017-11-25 18:03 | NUR ---
RN MS NOTES PT IN BED, AWAKE, ALERT TO SELF, NO SIGN OF PAIN OR DISTRESS, WOUND TREATMENT DONE, DRESSING CHANGE DONE NEEDED, FAMILY VISITED, ASSISTED WITH MEALS, TURNED AND REPOSITIONED Q2 HOURS, MEDS GIVEN ORDERED, KEPT CLEAN AND DRY.
--- NOTE | 2017-11-25 19:15 | NUR ---
MS RN NOTES ON BED A/O X2.ABLE TO ANSWER SIMPLE QUESTION. RIGHT LOWER LEG DRESSING INTACT AND DRY.NS AT TKO RATE INFUSING ON RIGHT HAND VIA IV PUMP.DNR STATUS.CALL LIGHT IN REACH,WILL CONTINUE TO MONITOR STATUS.
[2017-11-25 20:00] VITALS: BP 158/78
[2017-11-25 20:05] VITALS: BP 158/78
--- NOTE | 2017-11-25 21:18 | NUR ---
MS RN NOTES ACCUCHECK BLOOD SUGAR CHECK 123,NO INSULIN COVERAGE.LANTUS 10 UNITS HELD,PATIENT DOESNT EAT MUCH OF HER DINNER FOOD,NO IV FLUIDS.
[2017-11-25] MEDS: DOCUSATE SODIUM 100 MG CAPSULE PO SCH (21:37)
[2017-11-25] MEDS: SIMVASTATIN 10 MG TABLET PO SCH (21:37)
[2017-11-25] MEDS: VANCOMYCIN 0.75 GM in IV D5W 250 ML IV SCH (21:45)
--- NOTE | 2017-11-25 21:49 | NUR ---
MS RN NOTES VANCO THROUGH 11,DUE VANCO INFUSING AT THIS TIME
[2017-11-26] MEDS: PIPERACILLIN /TAZOBACTAM 2.25 G in IV NS 0.9% 50 ML IV SCH ×4 (05:24→23:45)
[2017-11-26] MEDS: BLOOD SUGAR DIAGNOSTIC 1 EACH STRIP IN SCH ×4 (05:25→21:54)
[2017-11-26] MEDS: INSULIN ASPART/LISPRO 100 UNIT/ML CARTRIDGE SQ PRN ×3 (05:27→17:16)
--- NOTE | 2017-11-26 05:30 | NUR ---
MS RN NOTES [facility] BLOOD SUGAR CHECK 136,COVERED WITH INSULIN [place] 2 UNITS SQ VIA LEFT DELTOID
--- NOTE | 2017-11-26 06:17 | NUR ---
MS RN NOTES SLEPT WITH INTERVALS,REPOSITION Q 2 HOURS,IV ABX TOLERATED WELL.IN NO ACUTE DISTRESS.WILL ENDORSE TO DAY NURSE FOR VAMSHI.
--- NOTE | 2017-11-26 07:13 | NUR ---
RN MS NOTES PT IN BED, AWAKE, ALERT TO SELF, NO SIGN OF PAIN, NO FACIAL GRIMACING, BREATHING PATTERN NORMAL, KEPT WARM AND COMFORTABLE, REPOSITIONED FOR COMFORT.
[2017-11-26] MEDS: INSULIN GLARGINE, 100 UNIT/ML CARTRIDGE SQ SCH ×2 (07:30→22:00)
--- NOTE | 2017-11-26 07:30 | NUR ---
RN MS NOTES LANTUS HELD, POOR PO INTAKE
[2017-11-26 08:23] VITALS: BP 159/85
[2017-11-26] MEDS: MULTIVIT, IRON, MIN NO. 8, FA 1 TAB PO SCH (08:39)
[2017-11-26] MEDS: ACETAMINOPHEN 325 MG TABLET PO SCH (08:39)
[2017-11-26] MEDS: Z GUARD REMEDY 2 OZ OINT TP SCH (08:39)
[2017-11-26] MEDS: LEVETIRACETAM (250 MG) 250 MG TABLET PO SCH ×2 (08:39→17:06)
[2017-11-26] MEDS: ACIDOPHILUS/BULGARICUS 1 EACH TAB.CHEW PO SCH ×3 (08:39→17:06)
[2017-11-26] MEDS: ASCORBIC ACID 500 MG TABLET PO SCH (08:39)
[2017-11-26] MEDS: CARVEDILOL 3.125 MG TABLET PO SCH ×2 (08:40→17:07)
[2017-11-26] MEDS: LISINOPRIL (10MG) 10 MG TABLET PO SCH (08:40)
[2017-11-26] MEDS: DAKINS HALF STRENGTH (0.25%) 480 ML BOTTLE TOP SCH (08:41)
[2017-11-26] MEDS: PROSOURCE / PROSTAT (PYXIS) 30 ML UDC PO SCH ×3 (08:42→17:18)
[2017-11-26 08:50] LABS: CALCIUM, SERUM 8.9 mg/dL (8.5-10.1); CARBON DIOXIDE 30 mmol/L (21-32); CHLORIDE 106 mmol/L (98-107); CREATININE 0.8 mg/dL (0.6-1.3); GLUCOSE 142 mg/dL (74-106); POTASSIUM 3.4 mmol/L (3.5-5.1); SODIUM SERUM 147 mmol/L (136-145); UREA NITROGEN, BLOOD 12 mg/dL (7-18)
[2017-11-26] MEDS ORDERED: POTASSIUM CHLORIDE 20 MEQ TAB.PRT.SR PO SCH (11:30)
--- NOTE | 2017-11-26 13:00 | NUR ---
RN MS NOTES PT IN BED, AWAKE, NO FACIAL GRIMACING OR MOANING, RESPIRATIONS NORMAL, TURNED AND REPOSITIONED Q2 HOURS, KEPT SKIN CLEAN AND DRY, MEDICATIONS GIVEN ORDERED, KEPT COMFORTABLE.
[2017-11-26 16:22] VITALS: BP 146/74
--- NOTE | 2017-11-26 18:30 | NUR ---
RN MS NOTES PT IN BED, AWAKE, ALERT TO SELF, NO FACIAL GRIMACING OR MOANING, BREATHING PATTERN NORMAL, ASSISTED WITH MEALS, PM MEDS GIVEN ORDERED, TREATMENT DONE AND DRESSING CHANGE DONE, TURNED AND REPOSITIONED Q2 HOURS, KEPT SKIN CLEAN, KEPT COMFORTABLE, ALL NEEDS ATTENDED.
--- NOTE | 2017-11-26 19:30 | NUR ---
MS RN NOTES RECEIVED RESTING CALM AND QUIET ON BED,NS AT TKO RATE INFUSING VIA RIGHT HAND,LLE DRESSING INTACT AND DRY ELEVATED ON PILLOW.WILL CONTINUE TO MONITOR STATUS.
[2017-11-26 20:00] VITALS: BP_SYST 146; BP_SYST 161; BP_DIAS 71; BP_DIAS 73
[2017-11-26 21:00] VITALS: BP 146/71
[2017-11-26] MEDS: VANCOMYCIN 0.75 GM in IV D5W 250 ML IV SCH (21:54)
[2017-11-26] MEDS: DOCUSATE SODIUM 100 MG CAPSULE PO SCH (21:56)
[2017-11-26] MEDS: SIMVASTATIN 10 MG TABLET PO SCH (21:56)
--- NOTE | 2017-11-27 04:30 | NUR ---
MS RN NOTES FOLLOW UP PICTURE LLE DONE.DRESSING CHANGE DONE
[2017-11-27] MEDS: BLOOD SUGAR DIAGNOSTIC 1 EACH STRIP IN SCH ×4 (05:22→21:53)
[2017-11-27] MEDS: PIPERACILLIN /TAZOBACTAM 2.25 G in IV NS 0.9% 50 ML IV SCH ×3 (05:22→17:22)
--- NOTE | 2017-11-27 05:37 | NUR ---
MS RN NOTES ACCU-CHECK BLOOD SUGAR CHECK 124,NO INSULIN COVERAGE.
--- NOTE | 2017-11-27 06:13 | NUR ---
MS RN NOTES FAIRLY RESTED,NO CHANGE IN STATUS.IV ABX TOLERATED WELL.WOUND CARE DONE TO LLE.REPOSITION PER PROTOCOL.IN NO ACUTE DISTRESS.WILL ENDORSE TO DAY NURSE FOR VAMSHI.
--- NOTE | 2017-11-27 07:10 | NUR ---
RN NOTES PATIENT ALERT AND ORIENTED X1, NO S/SX OF RESPIRATORY DISTRESS NOTED. NO S/SX OF PAIN OR DISCOMFORT,KEPT COMFORTABLE, TURNED AND REPOSITIONED, NEEDS ATTENDED AND ANTICIPATED. CALL LIGHT WITHIN REACH, WILL CONTINUE TO MONITOR.
[2017-11-27 07:29] LABS: CALCIUM, SERUM 8.7 mg/dL (8.5-10.1); CARBON DIOXIDE 25 mmol/L (21-32); CHLORIDE 105 mmol/L (98-107); CREATININE 0.7 mg/dL (0.6-1.3); GLUCOSE 119 mg/dL (74-106); POTASSIUM 4.1 mmol/L (3.5-5.1); SODIUM SERUM 142 mmol/L (136-145); UREA NITROGEN, BLOOD 9 mg/dL (7-18)
[2017-11-27] MEDS: INSULIN GLARGINE, 100 UNIT/ML CARTRIDGE SQ SCH ×2 (07:30→21:55)
[2017-11-27 08:02] VITALS: BP 141/73
--- NOTE | 2017-11-27 08:55 | NUR ---
RN NOTES PATIENT ATE 10% OF BREAKFAST, INSULIN HELD.
[2017-11-27] MEDS: MULTIVIT, IRON, MIN NO. 8, FA 1 TAB PO SCH (10:13)
[2017-11-27] MEDS: ASCORBIC ACID 500 MG TABLET PO SCH (10:13)
[2017-11-27] MEDS: DAKINS HALF STRENGTH (0.25%) 480 ML BOTTLE TOP SCH (10:13)
[2017-11-27] MEDS: Z GUARD REMEDY 2 OZ OINT TP SCH (10:13)
[2017-11-27] MEDS: ACETAMINOPHEN 325 MG TABLET PO SCH (10:13)
[2017-11-27] MEDS: CARVEDILOL 3.125 MG TABLET PO SCH ×2 (10:14→16:34)
[2017-11-27] MEDS: LISINOPRIL (10MG) 10 MG TABLET PO SCH (10:14)
[2017-11-27] MEDS: LEVETIRACETAM (250 MG) 250 MG TABLET PO SCH ×2 (10:14→16:34)
[2017-11-27] MEDS: ACIDOPHILUS/BULGARICUS 1 EACH TAB.CHEW PO SCH ×3 (10:14→16:34)
[2017-11-27] MEDS: PROSOURCE / PROSTAT (PYXIS) 30 ML UDC PO SCH ×3 (10:15→16:34)
[2017-11-27] MEDS: INSULIN ASPART/LISPRO 100 UNIT/ML CARTRIDGE SQ PRN (12:56)
[2017-11-27 16:00] VITALS: BP 131/79
--- NOTE | 2017-11-27 18:51 | NUR ---
RN NOTES INSULIN FOR DINNER HELD D/T PATIENTS POOR PO INTAKE. PT IS IN NO DISTRESS, NO SOB NOTED, TURNED AND REPOSITIONED EVERY 2 HOURS, WOUND TREATMENT RENDERED ORDERED, BLE OFFLOADED, ALL DUE MEDICATIONS GIVEN ORDERED. NEEDS ATTENDED AND ANTICIPATED, CALL LIGHT WITHIN REACH, WILL ENDORSE TO BEHAVIORAL HEALTH ASSISTANT FOR VAMSHI.
--- NOTE | 2017-11-27 19:30 | NUR ---
MS RN NOTE: PATIENT RESTING IN BED, NO ACUTE DISTRESS NOTED. BREATHING EVEN AND UNLABORED, NO SOB NOTED. IV TO RIGHT HAND IN PLACE. NO S/S OF HYPER/HYPOGLYCEMIA NOTED. BED LOCKED AND IN LOWEST POSITION, CALL LIGHT IN REACH. WILL CONTINUE TO MONITOR.
[2017-11-27 20:00] VITALS: BP 151/75
[2017-11-27] MEDS: SIMVASTATIN 10 MG TABLET PO SCH (21:53)
[2017-11-27] MEDS: DOCUSATE SODIUM 100 MG CAPSULE PO SCH (21:53)
[2017-11-27] MEDS: VANCOMYCIN 0.75 GM in IV D5W 250 ML IV SCH (21:53)
--- NOTE | 2017-11-27 22:10 | NUR ---
MS RN NOTE: PATIENT BLOOD SUGAR LEVEL 126 MG/DL, NO INSULIN NEEDED PER SLIDING SCALE. PATIENT LANTUS ALSO HELD DUE TO POOR ORAL INTAKE. NO S/S OF HYPER/HYPOGLYCEMIA NOTED. WILL CONTINUE TO MONITOR.
[2017-11-28] MEDS: PIPERACILLIN /TAZOBACTAM 2.25 G in IV NS 0.9% 50 ML IV SCH ×4 (00:37→17:19)
--- NOTE | 2017-11-28 06:15 | NUR ---
MS RN NOTE: PATIENT RESTING IN BED, NO ACUTE DISTRESS NOTED. BREATHING EVEN AND UNLABORED, NO SOB NOTED. IV TO RIGHT HAND IN PLACE. PATIENT BLOOD SUGAR LEVEL 138 MG/DL, NO INSULIN GIVEN DUE TO POOR APPETITE, NO S/S OF HYPER/HYPOGLYCEMIA NOTED. BED LOCKED AND IN LOWEST POSITION, CALL LIGHT IN REACH. WILL ENDORSE TO DAY NURSE TO CONTINUE WITH PLAN OF CARE.
[2017-11-28] MEDS: BLOOD SUGAR DIAGNOSTIC 1 EACH STRIP IN SCH ×4 (06:37→22:25)
[2017-11-28 06:47] LABS: BASOPHILS % (AUTO) 0.5 % (0.0-2.0); EOSINOPHILS # (AUTO) 0.2 /CMM (0.0-0.7); EOSINOPHILS % (AUTO) 3.9 % (0.0-6.0); HEMATOCRIT 35 % (33-45); HEMOGLOBIN 11.5 g/dL (11.5-14.8); LYMPHOCYTES # (AUTO) 1.4 /CMM (0.8-4.8); LYMPHOCYTES % (AUTO) 24.7 % (20.0-44.0); MEAN CORPUSCULAR HEMOGLOBIN 30 PG (26.0-33.0); MEAN CORPUSCULAR HGB CONC 33 g/dl (31.0-36.0); MEAN CORPUSCULAR VOLUME 91 fL (82-100); MONOCYTES # (AUTO) 0.4 /CMM (0.1-1.30); MONOCYTES % (AUTO) 6.1 % (2.0-12.0); NEUTROPHILS # (AUTO) 3.7 /CMM (1.8-8.9); NEUTROPHILS % (AUTO) 64.8 % (43.0-81.0); PLATELET COUNT (AUTO) 334 /CMM (150-450); WHITE BLOOD COUNT (AUTO) 5.7 K/uL (4.3-11.0)
--- NOTE | 2017-11-28 07:21 | NUR ---
MS/RN Patient received Patient received form awake overnight counselor. Sleeping soundly at this time. Bed alarm switched on. Side rails X3 in upright position, brakes locked. Call light within reach, will continue to monitor and ensure safety.
[2017-11-28 07:25] LABS: CARBON DIOXIDE 30 mmol/L (21-32); CHLORIDE 103 mmol/L (98-107); CREATININE 0.7 mg/dL (0.6-1.3); GLUCOSE 123 mg/dL (74-106); PHOSPHORUS 2.7 mg/dL (2.5-4.9); POTASSIUM 3.4 mmol/L (3.5-5.1); SODIUM SERUM 144 mmol/L (136-145); UREA NITROGEN, BLOOD 9 mg/dL (7-18)
[2017-11-28] MEDS: INSULIN GLARGINE, 100 UNIT/ML CARTRIDGE SQ SCH ×2 (07:30→22:41)
[2017-11-28 07:46] LABS: MAGNESIUM 1.1 mg/dL (1.8-2.4)
[2017-11-28 08:00] VITALS: BP_SYST 160; BP_SYST 182; BP_DIAS 71; BP_DIAS 95
[2017-11-28] MEDS: LISINOPRIL (10MG) 10 MG TABLET PO SCH (08:20)
[2017-11-28] MEDS: MULTIVIT, IRON, MIN NO. 8, FA 1 TAB PO SCH (08:20)
[2017-11-28] MEDS: ASCORBIC ACID 500 MG TABLET PO SCH (08:20)
[2017-11-28] MEDS: LEVETIRACETAM (250 MG) 250 MG TABLET PO SCH ×2 (08:20→17:20)
[2017-11-28] MEDS: CARVEDILOL 3.125 MG TABLET PO SCH ×2 (08:20→17:22)
[2017-11-28] MEDS: ACIDOPHILUS/BULGARICUS 1 EACH TAB.CHEW PO SCH ×3 (08:21→17:20)
[2017-11-28] MEDS: ACETAMINOPHEN 325 MG TABLET PO SCH (08:21)
[2017-11-28] MEDS: DAKINS HALF STRENGTH (0.25%) 480 ML BOTTLE TOP SCH (08:22)
[2017-11-28] MEDS: Z GUARD REMEDY 2 OZ OINT TP SCH (08:22)
[2017-11-28] MEDS: PROSOURCE / PROSTAT (PYXIS) 30 ML UDC PO SCH ×3 (08:22→17:20)
--- NOTE | 2017-11-28 09:00 | NUR ---
MS/RN Medications Morning medications administered, crushed with apple sauce.
--- NOTE | 2017-11-28 09:54 | NUR ---
WOUND CARE CONSULT: PT PRESENTS WITH LEFT LOWER LEG DRESSING IN PLACE, SACRAL AND BUTTOCK SCARRING, SCARRING TO RT LOWER EXTREMITY AND SEVERE LOWER EXTREMITY CONTRACTURES, PRESENT ON ADMISSION. PT PLACED ON ANNETTE ISOFLEX LOW AIRLOSS BED. ALL SKIN PROTECTION MEASURES IN PLACE AND DISCUSSED WITH NURSING STAFF. CURRENT DIMA SCORE IS 10. DEFER TO DR ZAMORA FOR LOWER EXTREMITIES. IN AGREEMENT WITH PLAN OF CARE. WILL SEE PRN. Addendum: 11/28/17 at 0956 by LAYA STEIN WNDNU Amended: Links added.
--- NOTE | 2017-11-28 11:04 | NUR ---
MS/RN Turn and reposition Patient has been turned and repositioned every 2-3 hours.
[2017-11-28] MEDS ORDERED: POTASSIUM CHLORIDE 20 MEQ POWDER PACKET NG SCH (13:00)
--- NOTE | 2017-11-28 15:23 | NUR ---
MS/RN Second call Second call placed to exchange to contact group regarding patient's mag level of 1.1.
[2017-11-28 16:00] VITALS: BP_SYST 146; BP_SYST 172; BP_DIAS 71; BP_DIAS 91
[2017-11-28] MEDS: Magnesium 1GM/D5W 100ML PREMIX 100 ML IV SCH ×4 (17:22→20:35)
[2017-11-28] MEDS: INSULIN ASPART/LISPRO 100 UNIT/ML CARTRIDGE SQ PRN (17:51)
--- NOTE | 2017-11-28 18:21 | NUR ---
MS/RN End note No changes in care at this time. Magnesium currently being replaced, two further bags to be infused. Skin kept clean and dry. Has been turned and repositioned every 2-3 hours to prevent skin further breakdown, heels elevated on pillows. Bed in low setting, brakes locked, side reails X3 in upright position. Will endorse to control center operator.
--- NOTE | 2017-11-28 19:40 | NUR ---
RN OPENING NOTES RECEIVED REPORT FROM DAYSHIFT RNVANESSA. FOUND Pt AWAKE, RESTING IN BED, WATCHING TV. NO S/S OF ACUTE DISTRESS OR SOB NOTED. Pt IS A/OX1, HEBREW SPEAKING ONLY WITH DEMENTIA. IV ACCESS ON [facility] #22G, SL. SAFETY MEASURES IN PLACE. BED LOW, LOCKED, HOB ELEVATED, SIDE RAILS UP, CALL LIGHT AND BEDSIDE TABLE WITHIN REACH. WILL CONTINUE TO MONITOR Pt THROUGHOUT THE NIGHT FOR SAFETY.
[2017-11-28 20:00] VITALS: BP 103/74
[2017-11-28] MEDS ORDERED: LEVOFLOXACIN (250MG) 250 MG TABLET PO SCH (21:00)
[2017-11-28] MEDS: SIMVASTATIN 10 MG TABLET PO SCH (22:23)
[2017-11-28] MEDS: VANCOMYCIN 0.75 GM in IV D5W 250 ML IV SCH (22:23)
[2017-11-28] MEDS: DOCUSATE SODIUM 100 MG CAPSULE PO SCH (22:23)
[2017-11-29] MEDS: BLOOD SUGAR DIAGNOSTIC 1 EACH STRIP IN SCH ×2 (06:39→11:59)
[2017-11-29] MEDS: INSULIN GLARGINE, 100 UNIT/ML CARTRIDGE SQ SCH (06:44)
--- NOTE | 2017-11-29 06:45 | NUR ---
RN CLOSING NOTES NO SIGNIFICANT CHANGES IN Pt's CONDITION. Pt REMAINS IN STABLE CONDITION AT THIS TIME. NO S/S OF ACUTE DISTRESS OR SOB NOTED DURING THE NIGHT. ALL NEEDS MET AND ATTENDED TO. SAFETY MEASURES IN PLACE. WILL ENDORSE TO DAYSHIFT RN FOR Pt's VAMSHI.
--- NOTE | 2017-11-29 07:00 | NUR ---
RN NOTES PATIENT AWAKE, A/OX1, CONFUSED, BREATHING EVEN AND UNLABORED, NO SOB NOTED, LLE COVERED WITH CLEAN AND DRY DRESSING, PATIENT TURNED AND REPOSITIONED, KEPT COMFORTABLE, NEEDS ATTENDED AND MET, CALL LIGHT WITHIN REACH, WILL CONTINUE TO MONITOR.
[2017-11-29 07:14] LABS: CALCIUM, SERUM 8.9 mg/dL (8.5-10.1); CARBON DIOXIDE 29 mmol/L (21-32); CHLORIDE 102 mmol/L (98-107); CREATININE 0.6 mg/dL (0.6-1.3); GLUCOSE 157 mg/dL (74-106); POTASSIUM 2.9 mmol/L (3.5-5.1); SODIUM SERUM 143 mmol/L (136-145); UREA NITROGEN, BLOOD 13 mg/dL (7-18)
[2017-11-29 08:00] VITALS: BP 116/61
[2017-11-29] MEDS: MULTIVIT, IRON, MIN NO. 8, FA 1 TAB PO SCH (08:36)
[2017-11-29] MEDS: LEVETIRACETAM (250 MG) 250 MG TABLET PO SCH (08:36)
[2017-11-29] MEDS: ACETAMINOPHEN 325 MG TABLET PO SCH (08:36)
[2017-11-29] MEDS: ACIDOPHILUS/BULGARICUS 1 EACH TAB.CHEW PO SCH ×2 (08:36→13:33)
[2017-11-29 08:37] VITALS: BP 116/61
[2017-11-29] MEDS: ASCORBIC ACID 500 MG TABLET PO SCH (08:37)
[2017-11-29] MEDS: CARVEDILOL 3.125 MG TABLET PO SCH (08:37)
[2017-11-29] MEDS: LISINOPRIL (10MG) 10 MG TABLET PO SCH (08:37)
[2017-11-29] MEDS: Z GUARD REMEDY 2 OZ OINT TP SCH (08:39)
[2017-11-29] MEDS: PROSOURCE / PROSTAT (PYXIS) 30 ML UDC PO SCH ×2 (08:39→13:33)
[2017-11-29] MEDS: DAKINS HALF STRENGTH (0.25%) 480 ML BOTTLE TOP SCH (08:44)
[2017-11-29] MEDS: POTASSIUM CHLORIDE 20 MEQ POWDER PACKET PO SCH ×3 (11:59→14:57)
[2017-11-29] MEDS ORDERED: POTASSIUM CHLORIDE 20 MEQ TAB.PRT.SR PO SCH (12:00)
[2017-11-29] MEDS ORDERED: VANCOMYCIN 500 MG in IV D5W 100 ML IV SCH (12:00)
[2017-11-29] MEDS: INSULIN ASPART/LISPRO 100 UNIT/ML CARTRIDGE SQ PRN (12:40)
--- NOTE | 2017-11-29 12:48 | NUR ---
RN NOTES RECEIVED ORDER FOR DISCHARGE FROM DR. FONTANEZ. PATIENT CONFUSED, UNABLE TO UNDERSTAND DISCHARGE INSTRUCTIONS. REPORT GIVEN TO MARY HAIDER AT [facility], DISCHARGE INSTRUCTIONS RELAYED. PATIENT WILL CONTINUE LEVAQUIN AND VANCOMYCIN AT SNF. SKIN ASSESSMENT COMPLETED, NO CHANGES, PHOTO TAKEN OF LLE. SACRAL DRY AND INTACT. NEEDS ATTENDED AND MET, WILL ADMINISTER IV VANCO PRIOR TO DISCHARGE.
--- NOTE | 2017-11-29 15:55 | NUR ---
RN NOTES PATIENT A/OX1, BREATHING EVEN AND UNLABORED, NO DISTRESS, NO SOB NOTED, PICKED UP BY JULIENNE, ACCOMPANIED BY 2 ENGINEERING PROJECT DESIGNER. KEPT PIV ON RIGHT HAND 22G BECAUSE PATIENT IS BEING TRANSFERRED TO [facility] WITH CONTINUATION OF IV ANTIBIOTIC. REPORT AND DISCHARGE PAPERWORKS GIVEN TO JULIENNE. LEFT THE FACILITY IN STABLE CONDITION.
== END 2017-11-29 15:55 | DRG 299 ==
LOC: WOUND2 14:01
PROVIDERS: ADMIT Internal Medicine Nephrology; ATTEND Internal Medicine Nephrology
DX: E11.52 Type 2 diabetes mellitus with diabetic peripheral angiopathy with gangrene (principal); R53.2 Functional quadriplegia; E44.0 Moderate protein-calorie malnutrition; L97.929 Non-pressure chronic ulcer of unspecified part of left lower leg with unspecified severity; R56.9 Unspecified convulsions; S81.802A Unspecified open wound, left lower leg, initial encounter; F03.90 Unspecified dementia, unspecified severity, without behavioral disturbance, psychotic disturbance, mood disturbance, and anxiety; M24.569 Contracture, unspecified knee; Z86.73 Personal history of transient ischemic attack (TIA), and cerebral infarction without residual deficits; X58.XXXA Exposure to other specified factors, initial encounter; I10 Essential (primary) hypertension; I25.10 Atherosclerotic heart disease of native coronary artery without angina pectoris; M81.0 Age-related osteoporosis without current pathological fracture; H26.9 Unspecified cataract; F32.9 Major depressive disorder, single episode, unspecified; D64.9 Anemia, unspecified; Z88.8 Allergy status to other drugs, medicaments and biological substances; Z79.4 Long term (current) use of insulin; Z79.899 Other long term (current) drug therapy; Y92.129 Unspecified place in nursing home as the place of occurrence of the external cause; Z66 Do not resuscitate
CPT/HCPCS: 36415; 73590-TC; 80048-TC; 80202-TC; 82962-TC; 83735-TC; 84100-TC; 85025-TC; 87070-TC; 87081-TC; 87186-TC; A4216; A6253; A6402; A6403; J1815; J2543; J3370; J3475; J7030; J7050; J7060; Z7610